=== PATIENT | male | born 1990 | race Caucasian/White ===

== ENCOUNTER 2024-02-10 01:22 | Inpatient (IN) | payer MEDICAID ==
[~2024-02-10] VITALS: Ht 188 cm; Wt 137.4 kg
[2024-02-10 04:37] LABS: BASOPHILS % (AUTO) 0.6 % (0.0-2.0); EOSINOPHILS # (AUTO) 0.2 K/uL (0.0-0.7); EOSINOPHILS % (AUTO) 2.8 % (0.0-6.0); HEMATOCRIT 40 % (39-51); HEMOGLOBIN 13.3 g/dL (13.5-17.5); LYMPHOCYTES # (AUTO) 2.5 K/uL (0.8-4.8); LYMPHOCYTES % (AUTO) 31.6 % (20.0-44.0); MEAN CORPUSCULAR HEMOGLOBIN 30 PG (26.0-33.0); MEAN CORPUSCULAR HGB CONC 34 g/dl (31.0-36.0); MEAN CORPUSCULAR VOLUME 89 fL (80-96); MONOCYTES # (AUTO) 0.7 K/uL (0.1-1.30); MONOCYTES % (AUTO) 8.4 % (2.0-12.0); NEUTROPHILS # (AUTO) 4.5 K/uL (1.8-8.9); NEUTROPHILS % (AUTO) 56.6 % (43.0-81.0); PLATELET COUNT (AUTO) 354 K/uL (150-450); RED BLOOD CELL COUNT(AUTO) 4.44 MIL/uL (4.5-6.0); RED CELL DISTRIBUTION WIDTH 13.8 % (11.5-15.0); WHITE BLOOD COUNT (AUTO) 7.9 K/uL (4.3-11.0)
[2024-02-10 04:50] LABS: INR 0.99 (0.91-1.10); PARTIAL THROMBOPLASTIN TIME 31.6 SEC (24.3-34.3); PROTHROMBIN TIME 10.5 SECS (9.2-11.1)
[2024-02-10 05:54] LABS: CREATININE 0.8 mg/dL (0.6-1.3); POTASSIUM 3.9 mmol/L (3.5-5.1)
[2024-02-10 06:00] LABS: ALBUMIN 3.5 g/dL (3.4-5.0); BILIRUBIN,DIRECT 0.2 mg/dL (0.0-0.2); BILIRUBIN,TOTAL 0.6 mg/dL (0.2-1.0); TOTAL PROTEIN, SERUM 7.6 g/dL (6.4-8.2)
[2024-02-10] MEDS ORDERED: MAG HYDROX/AL HYDROX/SIMETH 30 ML UDC PO PRN (06:00)
[2024-02-10] MEDS ORDERED: MAGNESIUM HYDROXIDE 30 ML UDC PO PRN (06:00)
[2024-02-10] MEDS ORDERED: Z GUARD REMEDY 4 OZ OINT TP PRN (06:00)
[2024-02-10] MEDS ORDERED: ONDANSETRON HCL/PF 4 MG/2 ML VIAL IVP PRN (06:00)
[2024-02-10] MEDS ORDERED: CEFAZOLIN 2 GM in IV D5W 100 ML IV SCH (06:00)
[2024-02-10] MEDS ORDERED: CEFAZOLIN 2 GM in IV D5W 50 ML IV SCH (06:30)
[2024-02-10 06:42] VITALS: BP 137/92; TEMP 97.9; O2SAT 100
[2024-02-10] MEDS: IV NS 0.9% 1,000 ML IV SCH (07:12)
[2024-02-10] MEDS: CEFAZOLIN 2 GM in IV D5W 100 ML IV SCH (07:12)
[2024-02-10] MEDS: ACETAMINOPHEN 325 MG TABLET PO PRN (07:21)
[2024-02-10 08:00] VITALS: BP 150/90; TEMP 97.9; O2SAT 100
[2024-02-10] MEDS ORDERED: HYDR-4303 PO (09:21)
[2024-02-10 16:00] VITALS: BP 123/78; TEMP 98.6; O2SAT 99
[2024-02-10 20:00] VITALS: BP 132/90; TEMP 98.1; O2SAT 100
[2024-02-10] MEDS: HYDROCODONE/APAP 5/325MG TABLET PO PRN (21:04)
[2024-02-10] MEDS: ENOXAPARIN SODIUM 40 MG/0.4 ML DISP.SYRIN SQ SCH (21:06)
[2024-02-11 06:57] LABS: BASOPHILS # (AUTO) 0.1 K/uL (0.0-0.2); EOSINOPHILS # (AUTO) 0.3 K/uL (0.0-0.7); EOSINOPHILS % (AUTO) 4.4 % (0.0-6.0); HEMATOCRIT 43 % (39-51); HEMOGLOBIN 14.5 g/dL (13.5-17.5); LYMPHOCYTES # (AUTO) 2.4 K/uL (0.8-4.8); LYMPHOCYTES % (AUTO) 39.8 % (20.0-44.0); MEAN CORPUSCULAR HEMOGLOBIN 30 PG (26.0-33.0); MEAN CORPUSCULAR HGB CONC 34 g/dl (31.0-36.0); MEAN CORPUSCULAR VOLUME 89 fL (80-96); MONOCYTES # (AUTO) 0.4 K/uL (0.1-1.30); MONOCYTES % (AUTO) 6.6 % (2.0-12.0); NEUTROPHILS # (AUTO) 2.9 K/uL (1.8-8.9); NEUTROPHILS % (AUTO) 48.2 % (43.0-81.0); PLATELET COUNT (AUTO) 307 K/uL (150-450); RED BLOOD CELL COUNT(AUTO) 4.81 MIL/uL (4.5-6.0); RED CELL DISTRIBUTION WIDTH 13.9 % (11.5-15.0); WHITE BLOOD COUNT (AUTO) 5.9 K/uL (4.3-11.0)
[2024-02-11 07:15] LABS: CALCIUM, SERUM 8.9 mg/dL (8.5-10.1); CREATININE 0.8 mg/dL (0.6-1.3); MAGNESIUM 2.1 mg/dL (1.8-2.4); PHOSPHORUS 3.8 mg/dL (2.5-4.9); POTASSIUM 3.8 mmol/L (3.5-5.1)
[2024-02-11 07:30] VITALS: BP 143/99; TEMP 97.5; O2SAT 100
[2024-02-11] MEDS ORDERED: IV NS 0.9% 1,000 ML IV PRN (10:19)
[2024-02-11] MEDS ORDERED: SULF1TAB48 PO (12:48)
[2024-02-11] MEDS ORDERED: HYDR-3972 PO (12:48)
== END 2024-02-11 17:15 | disposition home or self-care (01) | DRG 383 ==
LOC: ER 01:25 → MED 04:49
PROVIDERS: ATTEND Nurse Practitioner Acute Care
DX: L03.116 Cellulitis of left lower limb (principal); D68.59 Other primary thrombophilia; S80.212A Abrasion, left knee, initial encounter; S93.334A Other dislocation of right foot, initial encounter; E66.01 Morbid (severe) obesity due to excess calories; D64.9 Anemia, unspecified; W05.2XXA Fall from non-moving motorized mobility scooter, initial encounter; Y92.89 Other specified places as the place of occurrence of the external cause; Z68.38 Body mass index [BMI] 38.0-38.9, adult
CPT/HCPCS: 36415; 73630-TC; 80048-TC; 80076-TC; 83605-TC; 83735-TC; 84100-TC; 85025-TC; 85652-TC; 85730-TC; 86140-TC; 87040-TC; 93971-TC; A4223; G0378; J0690; J1650; J7030; J7060